=== PATIENT | female | born 1965 | race Caucasian/White ===

== ENCOUNTER 2017-02-24 11:46 | Emergency (ER) | payer BC ==
[~2017-02-24] VITALS: Ht 157.5 cm; Wt 93.2 kg
[~2017-02-24 11:46] MED LIST: DPPI400 IM; KETO10TA PO; OXYC-57 PO; ZFRODT4 SL
[2017-02-24 11:53] VITALS: TEMP 36.7; Ht 157.5 cm; Wt 93.2 kg
[2017-02-24] MEDS ORDERED: MoRPHine SULFATE 4 MG/ML 1 ML CARP\\VIAL IV STA ×2 (13:43→14:49)
[2017-02-24] MEDS ORDERED: ONDANSETRON INJ 2 MG/ML 2 ML VIAL IV STA (13:43)
[2017-02-24] MEDS ORDERED: SODIUM CHLORIDE 0.9% 1000ML 1,000 ML IV STA (13:43)
--- NOTE | 2017-02-24 14:00 | EMERGENCY ROOM VISIT NOTE ---
History First contact with patient: 13:37 Chief Complaint: KIDNEY STONE Stated Complaint: KIDNEY STONE History of Present Illness The patient is a 51 year old female who presents to the Emergency Room with complaints of flank pain. The patient states she developed right-sided flank and abdominal pain this morning. She rates her discomfort an 8/10. She denies any fevers. She denies any pain in her chest or trouble breathing. She denies any dysuric emergency, frequency or hematuria. She reports a history of kidney stones and states this feels similar. She has seen Dr. Hewitt in the past. Review of Systems A 10 system review of systems was completed with positives and pertinent negatives listed in the HPI. Past Medical/Surgical History Medical Problems: (1) GERD (gastroesophageal reflux disease) Social History Smoking Status: Never Smoker Housing Status: lives with family Current/Historical Medications Scheduled Ketorolac (Toradol), 10 MG PO Q6-8HR PRN Medroxyprogesterone Acetate (Depo-Provera Contraceptive *), IM UD Ondansetron (Zofran Odt *), 4 MG SL Q6HR PRN Ondasetron Odt (Zofran Odt), 4 MG SL Q6H Oxycodone/Acetaminophen 5MG/325MG (Percocet 5MG/325MG), 1-2 TABLETS PO Q4-6HR PRN Oxycodone/Acetaminophen 5MG/325MG (Percocet 5MG/325MG), 1-2 TABLETS PO Q4-6HR PRN Tamsulosin Hcl (Flomax), 0.4 MG PO DAILY Scheduled PRN Hydrocodone/Acetaminophen 5MG/325MG ([place] 5MG/325MG), 1-2 TABLET PO Q4H PRN for Pain Allergies Coded Allergies: No Known Allergies (Verified Allergy, Unknown, 07/10/07) Physical Exam Vital Signs Date Time Temp Pulse Resp B/P Pulse Ox O2 Delivery O2 Flow Rate FiO2 02/24/17 15:53 101 18 119/89 93 02/24/17 14:45 90 137/91 96 02/24/17 11:53 36.7 84 20 152/99 98 Room Air Physical Exam VITALS: Vitals are noted on the nurse's note and reviewed by myself. Vital signs stable. The patient is afebrile. GENERAL: This is a 51-year-old female, in no acute distress, nondiaphoretic, well-developed well-nourished. SKIN: The skin was without rashes, erythema, edema, or bruising. There is no tenting of the skin. Capillary reflex less than 2 seconds. HEAD: Normocephalic atraumatic. EARS: The external ears are normal in appearance. EYES: Pupils equal round and reactive to light and accommodation. Conjunctivae without injection, sclerae without icterus. Extraocular movements intact. NOSE: Patent, turbinates without inflammation or discharge. MOUTH: Mucous membranes moist. Tonsils are not enlarged. Pharynx without erythema or exudate. Uvula midline. Airway patent. Tongue does not deviate. NECK: Supple without nuchal rigidity. No lymphadenopathy. No thyromegaly. Cervical spine is nontender. No JVD. HEART: Regular rate and rhythm without murmurs gallops or rubs. LUNGS: Clear to auscultation bilaterally without wheezes, rales or rhonchi. . No retractions or accessory muscle use. ABDOMEN: Positive bowel sounds x 4. Soft, nontender, without masses or organomegaly. Do sign negative. There is moderate right-sided CVA tenderness. MUSCULOSKELETAL: No muscle atrophy, erythema, or edema noted. Full range of motion in all extremities. Normal gait. Strength 5/5 throughout. NEURO: Patient was alert and oriented to person place and time. No focal neurological deficits. Medical Decision & Procedures ER Provider Diagnostic Interpretation: CLINICAL HISTORY: Right flank pain. COMPARISON STUDY: Abdominal CT dated 04/04/2009. TECHNIQUE: CT scan of the abdomen and pelvis is performed from the lung bases to the proximal femora. Images are reviewed in the axial, sagittal, and coronal planes. IV contrast was not administered for this examination. Automated dose control exposure was utilized. CT DOSE: 1509.07 mGy.cm FINDINGS: Lung bases: The heart is normal in size and without pericardial effusion. The lung bases are clear. There is a small to moderate hiatal hernia. Liver: The unenhanced liver is normal in size, contour, and attenuation. A 9 mm cyst is noted in the right lobe. There is no intrahepatic biliary ductal dilatation. Gallbladder: Unremarkable. Spleen: Normal in size and attenuation. Pancreas: Unremarkable. Adrenal glands: Unremarkable. Kidneys: The unenhanced kidneys are normal in size. There is a 3 mm obstructing calculus in the proximal right ureter seen on image #192 at the level of L3. This causes mild right hydronephrosis. There is no left-sided hydronephrosis. No additional calculi are seen in the right kidney. There are 2 nonobstructing calculi in the left upper pole measuring up to 3 mm. There are bilateral parapelvic cysts. There is no evidence of contour deforming renal mass lesion. Abdominal vasculature: The abdominal aorta is normal in course and caliber. Bowel: The small bowel and colon are normal in course and caliber. There is mild colonic diverticulosis without CT evidence of acute diverticulitis. The appendix is not clearly visualized. Peritoneum: There is no intraperitoneal free air or abdominal ascites. There is a small fat-containing umbilical hernia. Lymphadenopathy: None. Pelvic viscera: The partially decompressed bladder is grossly unremarkable. The uterus and adnexa are normal as imaged. There are small ovarian follicles are seen on the right. Skeletal structures: No lytic or blastic lesions are seen. IMPRESSION: 1. There is a 3 mm obstructing calculus in the proximal right ureter. This causes mild right hydronephrosis. 2. There are 2 nonobstructing calculi in the left kidney. 3. Mild colonic diverticulosis without CT evidence of acute diverticulosis. 4. Additional findings as above. Laboratory Results 02/24/17 13:58 Red Blood Count 4.61, Mean Corpuscular Volume 95.0, Mean Corpuscular Hemoglobin 31.0, Mean Corpuscular Hemoglobin Concent 32.6, Mean Platelet Volume 9.9, Neutrophils (%) (Auto) 78.5, Lymphocytes (%) (Auto) 12.9, Monocytes (%) (Auto) 6.0, Eosinophils (%) (Auto) 2.1, Basophils (%) (Auto) 0.2, Neutrophils # (Auto) 8.67, Lymphocytes # (Auto) 1.42, Monocytes # (Auto) 0.66, Eosinophils # (Auto) 0.23, Basophils # (Auto) 0.02 02/24/17 13:58 Test 02/24/17 13:45 02/24/17 13:58 Urine Color DK YELLOW Urine Appearance CLOUDY (CLEAR) Urine pH 6.5 (4.5-7.5) Urine Specific [place] 1.030 (1.000-1.030) Urine Protein TRACE (NEG) Urine Glucose (UA) NEG (NEG) Urine Ketones NEG (NEG) Urine Occult Blood 3+ (NEG) Urine Nitrite NEG (NEG) Urine Bilirubin NEG (NEG) Urine Urobilinogen NEG (NEG) Urine Leukocyte Esterase NEG (NEG) Urine WBC (Auto) 1-5 /hpf (0-5) Urine RBC (Auto) >30 /hpf (0-4) Urine Hyaline Casts (Auto) 1-5 /lpf (0-5) Urine Epithelial Cells (Auto) >30 /lpf (0-5) Urine Bacteria (Auto) 1+ (NEG) Urine Test NEG (NEG) White Blood Count 11.03 K/uL (4.8-10.8) Red Blood Count 4.61 M/uL (4.2-5.4) Hemoglobin 14.3 g/dL (12.0-16.0) Hematocrit 43.8 % (37-47) Mean Corpuscular Volume 95.0 fL (80-100) Mean Corpuscular Hemoglobin 31.0 pg (25-34) Mean Corpuscular Hemoglobin Concent 32.6 g/dl (32-36) Platelet Count 235 K/uL (130-400) Mean Platelet Volume 9.9 fL (7.4-10.4) Neutrophils (%) (Auto) 78.5 % Lymphocytes (%) (Auto) 12.9 % Monocytes (%) (Auto) 6.0 % Eosinophils (%) (Auto) 2.1 % Basophils (%) (Auto) 0.2 % Neutrophils # (Auto) 8.67 K/uL (1.4-6.5) Lymphocytes # (Auto) 1.42 K/uL (1.2-3.4) Monocytes # (Auto) 0.66 K/uL (0.11-0.59) Eosinophils # (Auto) 0.23 K/uL (0-0.5) Basophils # (Auto) 0.02 K/uL (0-0.2) RDW Standard Deviation 52.8 fL (36.4-46.3) RDW Coefficient of Variation 15.2 % (11.5-14.5) Immature Granulocyte % (Auto) 0.3 % Immature Granulocyte # (Auto) 0.03 K/uL (0.00-0.02) Anion Gap 6.0 mmol/L (3-11) Est Creatinine Clear Calc Drug Dose 76.1 ml/min Estimated GFR () 82.5 Estimated GFR (Non- 71.2 BUN/Creatinine Ratio 11.9 (10-20) Calcium Level 8.6 mg/dl (8.5-10.1) Total Bilirubin 0.4 mg/dl (0.2-1) Aspartate Amino Transf (AST/SGOT) 16 U/L (15-37) Alanine Aminotransferase (ALT/SGPT) 27 U/L (12-78) Alkaline Phosphatase 88 U/L (45-117) Total Protein 7.6 gm/dl (6.4-8.2) Albumin 3.9 gm/dl (3.4-5.0) Globulin 3.7 gm/dl (2.5-4.0) Albumin/Globulin Ratio 1.1 (0.9-2) Lipase 136 U/L (73-393) Medications Administered Medications (Trade) Dose Ordered Sig/Storm Route Start Time Stop Time Status Last Admin Dose Admin Sodium Chloride (Nss 1000ml) 1,000 ml @ 999 mls/hr Q1H1M STAT IV 02/24/17 13:43 02/24/17 14:43 DC 02/24/17 14:06 999 MLS/HR Morphine Sulfate (MoRPHine SULFATE INJ) 4 mg NOW STAT IV 02/24/17 13:43 02/24/17 13:46 DC 02/24/17 14:05 4 MG Ondansetron HCl (Zofran Inj) 4 mg NOW STAT IV 02/24/17 13:43 02/24/17 13:46 DC 02/24/17 14:06 4 MG Morphine Sulfate (MoRPHine SULFATE INJ) 4 mg NOW STAT IV 02/24/17 14:49 02/24/17 14:51 DC 02/24/17 14:56 4 MG Famotidine (Pepcid Tab) 20 mg NOW ONCE PO 02/24/17 15:45 02/24/17 15:46 DC 02/24/17 15:49 20 MG ED Course The patient was seen and examined. Previous visits were reviewed. The patient does not have a fever. She does have a mild leukocytosis of 11.03. She does not have any significant electrolyte abnormalities. Lipase is not elevated. Urinalysis reveals hematuria but no evidence for urinary tract infection. Urine test was negative. CT scan of the abdomen and pelvis reveals a 3 mm right-sided proximal ureteral stone with moderate hydronephrosis The patient was hydrated with normal saline She was given 4 mg IV morphine and 4 mg IV Zofran with initial improvement in her pain Shortly before discharge she complained of pain again and was given additional 4 mg IV morphine and stated her pain was at an acceptable level The patient also complained of reflux and requested Pepcid. She was given 20 mg oral Pepcid. The patient presents to the emergency department with flank pain. She has a history of kidney stones and stated this feels similar. She does have a 3 mm stone. She will likely pass this on her own. She'll be given prescriptions for pain medication, Flomax and Zofran. She reports some indigestion and states she did not take her Prilosec this morning. She denies any chest pain or trouble breathing. She should return with any fevers or intractable pain. She should follow-up with her urologist if symptoms are not improving. The case was discussed with Dr. lopez who agrees with the assessment and treatment plan Medical Decision DIFFERENTIAL DIAGNOSIS: Hepatitis, cholecystitis, cholangitis, biliary colic, pancreatitis, pneumonia, subdiaphragmatic abscess, appendicitis, inguinal hernia , nephrolithiasis, inflammatory bowel disease, mesenteric adenitis, peptic ulcer disease, GERD, gastritis, pancreatitis, myocardial infarction, pericarditis, ruptured aortic aneurysm, appendicitis, gastroenteritis, bowel obstruction, splenic infarct, diverticulitis, mesenteric ischemia, metabolic, peritonitis, among others. [place] Drug Monitoring Program Search Results: patient reviewed within database, no issues identified Impression Primary Impression: Kidney stone Departure Information Dispostion Home / Self-Care Condition GOOD Prescriptions Tamsulosin Hcl (FLOMAX) 0.4 Mg Cap 0.4 MG PO DAILY for 7 Days, #7 CAP Prov: Josselin Chaudhari PA-C 02/24/17 Ondasetron Odt (ZOFRAN ODT) 4 Mg Tab 4 MG SL Q6H for Nausea, #20 TAB Prov: Josselin Chaudhari PA-C 02/24/17 Hydrocodone/Acetaminophen 5MG/325MG ([place] 5MG/325MG) Tab 1-2 TABLET PO Q4H Y for Pain, #36 TAB For Initial Treatment Prov: Josselin Chaudhari PA-C 02/24/17 Referrals Jennifer Bhatt C.R.N.P (PCP) Dante Hewitt M.D. Patient Instructions Kidney Stones, My [facility] Additional Instructions Motrin 600 mg every 6-8 hours or moderate pain [place] 1 tablet every 4-6 hours if needed for worse pain. Do not drink or drive while taking [place] and do not take with Tylenol. Flomax once daily for 7 days Zofran as prescribed, as needed for nausea Return with any fevers or pain cannot be controlled at home Follow up with urology if the stone does not pass
[2017-02-24 14:09] LABS: BASO % 0.2 %; BASO ABS # 0.02 K/uL (0-0.2); COMPLETE YES; EOS % 2.1 %; HEMATOCRIT 43.8 % (37-47); IG% 0.3 %; LYMPH % 12.9 %; LYMPH ABS # 1.42 K/uL (1.2-3.4); MEAN CORPUSCULAR HGB CONC 32.6 g/dl (32-36); MEAN PLATELET VOLUME 9.9 fL (7.4-10.4); NEUT % 78.5 %; PLATELET COUNT 235 K/uL (130-400); RED BLOOD COUNT 4.61 M/uL (4.2-5.4); WHITE BLOOD COUNT 11.03 K/uL (4.8-10.8)
[2017-02-24 14:09] LABS: URINE APPEARANCE CLOUDY (CLEAR); URINE BILIRUBIN NEG (NEG); URINE COLOR DK YELLOW; URINE EPITHELIAL CELL AUTO >30 /lpf (0-5); URINE NITRITE NEG (NEG); URINE PH 6.5 (4.5-7.5); UROBILINOGEN NEG (NEG); ZZUR CULT IF INDIC CLEAN CATCH YES
[2017-02-24 14:15] LABS: MANUAL MICROSCOPIC REQUIRED? NO; REVIEW REQ? NO
[2017-02-24 14:28] LABS: BUN/CREATININE RATIO 11.9 (10-20); CALCIUM 8.6 mg/dl (8.5-10.1); CREATININE 0.93 mg/dl (0.60-1.20); POTASSIUM 3.9 mmol/L (3.5-5.1)
[2017-02-24 14:30] LABS: ALB/GLOB RATIO 1.1 (0.9-2)
--- NOTE | 2017-02-24 14:38 | DIAGNOSTIC IMAGING REPORT ---
CT SCAN OF THE ABDOMEN AND PELVIS WITHOUT IV CONTRAST CLINICAL HISTORY: Right flank pain. COMPARISON STUDY: Abdominal CT dated 04/04/2009. TECHNIQUE: CT scan of the abdomen and pelvis is performed from the lung bases to the proximal femora. Images are reviewed in the axial, sagittal, and coronal planes. IV contrast was not administered for this examination. Automated dose control exposure was utilized. CT DOSE: 1509.07 mGy.cm FINDINGS: Lung bases: The heart is normal in size and without pericardial effusion. The lung bases are clear. There is a small to moderate hiatal hernia. Liver: The unenhanced liver is normal in size, contour, and attenuation. A 9 mm cyst is noted in the right lobe. There is no intrahepatic biliary ductal dilatation. Gallbladder: Unremarkable. Spleen: Normal in size and attenuation. Pancreas: Unremarkable. Adrenal glands: Unremarkable. Kidneys: The unenhanced kidneys are normal in size. There is a 3 mm obstructing calculus in the proximal right ureter seen on image #192 at the level of L3. This causes mild right hydronephrosis. There is no left-sided hydronephrosis. No additional calculi are seen in the right kidney. There are 2 nonobstructing calculi in the left upper pole measuring up to 3 mm. There are bilateral parapelvic cysts. There is no evidence of contour deforming renal mass lesion. Abdominal vasculature: The abdominal aorta is normal in course and caliber. Bowel: The small bowel and colon are normal in course and caliber. There is mild colonic diverticulosis without CT evidence of acute diverticulitis. The appendix is not clearly visualized. Peritoneum: There is no intraperitoneal free air or abdominal ascites. There is a small fat-containing umbilical hernia. Lymphadenopathy: None. Pelvic viscera: The partially decompressed bladder is grossly unremarkable. The uterus and adnexa are normal as imaged. There are small ovarian follicles are seen on the right. Skeletal structures: No lytic or blastic lesions are seen. IMPRESSION: 1. There is a 3 mm obstructing calculus in the proximal right ureter. This causes mild right hydronephrosis. 2. There are 2 nonobstructing calculi in the left kidney. 3. Mild colonic diverticulosis without CT evidence of acute diverticulosis. 4. Additional findings as above. Electronically signed by: Alo Farooq M.D. 02/24/2017 2:37 PM Dictated Date/Time: 02/24/2017 2:29 PM
[2017-02-24] MEDS ORDERED: HYDR-5688 PO (15:26)
[2017-02-24] MEDS ORDERED: ONDA4TAB10 SL (15:26)
[2017-02-24] MEDS ORDERED: TAMS0.4C38 PO (15:26)
[2017-02-24] MEDS ORDERED: FAMOTIDINE 20 MG TAB PO ONE (15:45)
[2017-02-24 15:53] VITALS: BP 119/89; PULSE 101; O2SAT 93
== END 2017-02-24 15:54 | disposition home or self-care (01) ==
LOC: C.EDB 11:47 → C.EDA 15:54
DX: N20.0 Calculus of kidney (principal); Z87.442 Personal history of urinary calculi

== ENCOUNTER → 2017-03-16 | Outpatient (CLI) | payer BC ==
[~2017-03-16] MED LIST changes: +HYDR-5688 PO; +ONDA4TAB10 SL
--- NOTE | 2017-03-16 13:13 | DIAGNOSTIC IMAGING REPORT ---
ULTRASOUND LEFT LOWER EXTREMITY VENOUS CLINICAL HISTORY: Left ankle swelling. COMPARISON STUDY: No priors. TECHNIQUE: Real-time, grayscale, and color Doppler sonography of the deep veins of the left lower extremity was performed from the inguinal crease to the calf. Compression and augmentation were utilized. FINDINGS: There is no sonographic evidence of deep venous thrombosis identified in the left lower extremity. The common femoral, superficial femoral, and popliteal veins are patent and normally compressible. The greater saphenous vein and the profunda femoris vein at the junction with the common femoral vein are clear. The visualized calf veins are patent. IMPRESSION: There is no sonographic evidence of deep venous thrombosis identified in the left lower extremity. Electronically signed by: Alo Farooq M.D. 03/16/2017 1:11 PM Dictated Date/Time: 03/16/2017 1:11 PM
== END | disposition home or self-care (01) ==
LOC: C.ULTR 12:38
PROVIDERS: ATTEND Nurse Practitioner
DX: M25.472 Effusion, left ankle (principal)

== ENCOUNTER → 2017-03-21 | Outpatient (CLI) | payer BC ==
--- NOTE | 2017-03-21 16:40 | ECHOCARDIOGRAM REPORT ---
*NOTICE TO RECEIVING [employer]Y This information is strictly Confidential and protected under [place] law. [place] law prohibits you from making any further disclosure of this information unless further disclosure is expressly permitted by the written consent of the person to whom it pertains or is authorized by law. A general authorization for the release of medical or other information is not sufficient for this purpose. Hospital accepts no responsibility if the information is made available to any other person, INCLUDING THE PATIENT. Interpretation Summary * Name: IDRIS BALES Study Date: 03/21/2017 01:45 PM BP: 152/84 mmHg * Patient Location: [facility] HR: 86 * : 1965 (M/d/yyyy) Gender: Female Height: 62 in * Age: 51 yrs Ethnicity: CA Weight: 205 lb * Ordering Physician: Jennifer Bhatt * Referring Physician: Jennifer Bhatt * Performed By: Josselin Hui RDCS * * Reason For Study: HERNANDEZ * BSA: 1.9 m2 * -- Conclusions -- * There is mild concentric left ventricular hypertrophy. * Left ventricular systolic function is normal. Procedure Details * Left Ventricle The left ventricle is normal in size. There is mild concentric left ventricular hypertrophy. Ejection Fraction = 60-65%. Left ventricular systolic function is normal. The left ventricular wall motion is normal. * Right Ventricle The right ventricle is normal in size and function. The right ventricular systolic function is normal as assessed by tricuspid annular plane systolic excursion (TAPSE) (normal >1.5 cm). * Atria The left atrial size is normal. Right atrial size is normal. * Mitral Valve The mitral valve is grossly normal. There is no mitral regurgitation noted. * Tricuspid Valve The tricuspid valve is not well visualized, but is grossly normal. Significant tricuspid regurgitation is absent. * Aortic Valve The aortic valve is not well visualized. No hemodynamically significant valvular aortic stenosis. There is no significant aortic regurgitation. * Pericardium/Pleural There is no pericardial effusion. * Great Vessels Normal inferior vena cava diameter and respiratory variation suggests normal central venous pressure. * * MMode 2D Measurements and Calculations * IVSd 1.0 cm * IVSs 1.3 cm * * LVIDd 4.2 cm * LVIDs 2.8 cm * LVPWd 1.3 cm * LVPWs 1.5 cm * * IVS/LVPW 0.82 * FS 34.7 % * EDV(Teich) 79.6 ml * ESV(Teich) 28.5 ml * EF(Teich) 64.2 % * * EDV(cubed) 75.4 ml * ESV(cubed) 21.0 ml * EF(cubed) 72.2 % * % IVS thick 29.8 % * % LVPW thick 22.4 % * * LV mass(C)d 165.9 grams * LV mass(C)dI 85.9 grams/m\S\2 * LV mass(C)s 130.4 grams * LV mass(C)sI 67.5 grams/m\S\2 * * CO(Teich) 4.4 l/min * CI(Teich) 2.3 l/min/m\S\2 * SV(Teich) 51.2 ml * SI(Teich) 26.5 ml/m\S\2 * CO(cubed) 4.7 l/min * CI(cubed) 2.4 l/min/m\S\2 * SV(cubed) 54.4 ml * SI(cubed) 28.2 ml/m\S\2 * * ACS 1.5 cm * * asc Aorta Diam 2.7 cm * * LVOT diam 1.7 cm * LVOT area 2.2 cm\S\2 * * LVAd ap4 27.9 cm\S\2 * LVLd ap4 7.6 cm * EDV(MOD-sp4) 85.0 ml * LVAs ap4 16.0 cm\S\2 * LVLs ap4 6.5 cm * ESV(MOD-sp4) 33.7 ml * EF(MOD-sp4) 60.4 % * * LVAd ap2 25.9 cm\S\2 * LVLd ap2 7.4 cm * EDV(MOD-sp2) 76.7 ml * LVAs ap2 14.4 cm\S\2 * LVLs ap2 5.9 cm * ESV(MOD-sp2) 30.2 ml * EF(MOD-sp2) 60.6 % * * CO(MOD-sp4) 4.4 l/min * CI(MOD-sp4) 2.3 l/min/m\S\2 * SV(MOD-sp4) 51.3 ml * SI(MOD-sp4) 26.6 ml/m\S\2 * * CO(MOD-sp2) 4.0 l/min * CI(MOD-sp2) 2.1 l/min/m\S\2 * SV(MOD-sp2) 46.5 ml * SI(MOD-sp2) 24.1 ml/m\S\2 * * * * * * Doppler Measurements and Calculations * MV E max jewels 101.9 cm/sec * MV A max jewels 61.6 cm/sec * * MV E/A 1.7 * * MV P1/2t max jewels 114.8 cm/sec * MV P1/2t 68.0 msec * MVA(P1/2t) 3.2 cm\S\2 * MV dec slope 494.8 cm/sec\S\2 * MV dec time 0.18 sec * * Ao V2 max 136.7 cm/sec * Ao max PG 7.5 mmHg * Ao max PG (full) 2.5 mmHg * FERNANDO(V,A) 1.8 cm\S\2 * FERNANDO(V,D) 1.8 cm\S\2 * * LV V1 max PG 5.0 mmHg * * LV V1 max 111.4 cm/sec * * PA V2 max 71.6 cm/sec * PA max PG 2.1 mmHg * * *
== END | disposition home or self-care (01) ==
LOC: C.CPL 13:35
PROVIDERS: ATTEND Nurse Practitioner
DX: R06.00 Dyspnea, unspecified (principal)

== ENCOUNTER → 2018-03-05 | Outpatient (CLI) | payer OTHER ==
[~2018-03-05] MED LIST changes: -HYDR-5688 PO; -ONDA4TAB10 SL
[2018-03-05 12:37] LABS: BLOOD UREA NITROGEN 11 mg/dl (7-18); CALCIUM 8.7 mg/dl (8.5-10.1); CARBON DIOXIDE 29 mmol/L (21-32); CREATININE 0.86 mg/dl (0.60-1.20); GLUCOSE 83 mg/dl (70-99); POTASSIUM 3.9 mmol/L (3.5-5.1); SODIUM 141 mmol/L (136-145)
[2018-03-05 12:40] LABS: CHOLESTEROL 182 mg/dl (0-200); LDL CHOLESTEROL CALCULATED 105 mg/dl
== END | disposition home or self-care (01) ==
LOC: C.LAB1850 11:15
PROVIDERS: ATTEND Nurse Practitioner
DX: Z13.1 Encounter for screening for diabetes mellitus (principal)

== ENCOUNTER → 2018-03-08 | Outpatient (CLI) | payer OTHER ==
--- NOTE | 2018-03-09 07:47 | MAMMOGRAPHY REPORT ---
BILATERAL DIGITAL SCREENING MAMMOGRAM TOMOSYNTHESIS WITH CAD: 03/08/2018 CLINICAL HISTORY: Routine screening. Patient has no complaints. TECHNIQUE: Breast tomosynthesis in addition to standard 2D mammography was performed. Current study was also evaluated with a Computer Aided Detection (CAD) system. COMPARISON: Comparison is made to exam dated: 06/02/2011 mammogram - [facility]. BREAST COMPOSITION: The tissue of both breasts is heterogeneously dense, which may obscure small mas ses. FINDINGS: No suspicious masses, calcifications, or areas of architectural distortion are noted in ei ther breast. There has been no significant interval change compared to prior exams. IMPRESSION: ACR BI-RADS CATEGORY 1: NEGATIVE There is no mammographic evidence of malignancy. A 1 year screening mammogram is recommended. The pa tient will receive written notification of the results. Approximately 10% of breast cancers are not detected with mammography. A negative mammographic report should not delay biopsy if a clinically suggestive mass is present. Christina Helms M.D. ah/:03/08/2018 15:22:17 School Treasurer: Mary GARRIDO(Max)(Camille)(BD), [facility] letter sent: Normal 1/2 BI-RADS Code: ACR BI-RADS Category 1: Negative
== END | disposition home or self-care (01) ==
LOC: C.MAMM 14:40
PROVIDERS: ATTEND Nurse Practitioner
DX: Z00.00 Encounter for general adult medical examination without abnormal findings (principal); Z12.31 Encounter for screening mammogram for malignant neoplasm of breast; Z51.81 Encounter for therapeutic drug level monitoring; M85.89 Other specified disorders of bone density and structure, multiple sites

== ENCOUNTER → 2018-03-09 | Outpatient (CLI) | payer OTHER ==
--- NOTE | 2018-03-09 10:03 | DIAGNOSTIC IMAGING REPORT ---
C-SPINE ROUTINE 4 OR 5 VIEWS CLINICAL HISTORY: 52 years-old Female presenting with CERVICAL RADICULOPATHY NECK PAIN. TECHNIQUE: Lateral, bilateral oblique, frontal, open-mouth odontoid, and swimmer's views of the cervical spine were obtained. COMPARISON: None. FINDINGS: Straightening of normal cervical lordosis, possibly positional. Osteopenia may be present. Vertebral bodies maintain normal height and alignment. Intervertebral disc heights are preserved. Small disc osteophyte complexes noted at C3-4 through C5-6. No posterior bony spurring. No radiographic evidence of compression deformity or subluxation. No osseous neural foraminal narrowing. No significant uncovertebral hypertrophy. The lateral masses of C1 articulate normally with C2. Normal predental interval. No prevertebral soft tissue swelling. IMPRESSION: Mild degenerative changes of the mid cervical spine without radiographic evidence of acute osseous injury or neural foraminal narrowing. Electronically signed by: Kieran Johnson M.D. 03/09/2018 10:02 AM Dictated Date/Time: 03/09/2018 10:00 AM
[2018-03-09 12:25] LABS: BASO % 0.4 %; BASO ABS # 0.03 K/uL (0-0.2); EOS ABS # 0.42 K/uL (0-0.5); HEMATOCRIT 41.7 % (37-47); HEMOGLOBIN 13.3 g/dL (12.0-16.0); IG# 0.01 K/uL (0.00-0.02); LYMPH % 25.5 %; LYMPH ABS # 1.79 K/uL (1.2-3.4); MEAN CELL VOLUME 93.1 fL (80-100); MEAN CORPUSCULAR HEMOGLOBIN 29.7 pg (25-34); MEAN CORPUSCULAR HGB CONC 31.9 g/dl (32-36); MEAN PLATELET VOLUME 10.4 fL (7.4-10.4); MONO ABS # 0.42 K/uL (0.11-0.59); NEUT ABS # 4.36 K/uL (1.4-6.5); PLATELET COUNT 229 K/uL (130-400); RED CELL DISTRIBUTION WIDTH CV 15.1 % (11.5-14.5); RED CELL DISTRIBUTION WIDTH SD 51.2 fL (36.4-46.3); WHITE BLOOD COUNT 7.03 K/uL (4.8-10.8)
== END | disposition home or self-care (01) ==
LOC: C.LABPVFM 09:20
PROVIDERS: ATTEND Nurse Practitioner
DX: M54.12 Radiculopathy, cervical region (principal); M54.2 Cervicalgia